=== PATIENT | male | born 1950 | race Caucasian/White ===

== ENCOUNTER → 2019-08-05 | Outpatient (CLI) | payer MEDICARE, OTHER ==
--- NOTE | 2019-08-05 17:24 | Diagnostic Imaging Report ---
EXAM: Abdomen, supine and erect at 2:23 PM INDICATION: Abdominal pain TECHNIQUE: Supine and erect views were obtained. COMPARISON: There are no prior studies available for comparison. FINDINGS: There is a small amount of gas in both the large and small bowel. This appearance is nonspecific. There is no evidence for a bowel obstruction. There is no mass or organomegaly appreciated. There are several calcifications low in the pelvis particularly on the left. I suspect these are phleboliths. There is no other pathological calcification evident. The osseous structures are intact. IMPRESSION: 1. The bowel gas pattern is nonspecific. There is no acute abnormality identified. Dictated by: Dictated on workstation # [id number]
--- NOTE | 2019-08-05 17:43 | Diagnostic Imaging Report ---
EXAM: PA and lateral chest at 2:22 PM INDICATION: Gastritis COMPARISON: There are no prior studies available for comparison. The heart size is within normal limits. The lungs are clear. There is no sign of failure, pneumonia or of pleural effusion. There do appear to be a few small calcified granulomas about the left hilum and in the left lung base. The mediastinum is not widened. The lateral view does show a severe 60-70% compression deformity of one of the lower most thoracic vertebra, probably T10. This injury may well be long-standing in nature. If previous exams are available, they would be helpful for comparison. If there are no prior studies and there is clinical concern regarding an acute injury of the lower thoracic spine, MRI would be recommended for further evaluation. IMPRESSION: 1. There is no acute cardiopulmonary abnormality noted. 2. The compression deformity of T10 is most likely long-standing in nature. Additional considerations and recommendations, as above. Dictated by: Dictated on workstation # [id number]
== END ==
LOC: RAD FS 14:08
PROVIDERS: ATTEND Emergency Medicine
DX: K29.70 Gastritis, unspecified, without bleeding (principal); M43.9 Deforming dorsopathy, unspecified
CPT/HCPCS: 71046; 74019

== ENCOUNTER 2019-11-21 15:57 | Emergency (ER) | payer MEDICARE, OTHER ==
[~2019-11-21] VITALS: Ht 180.3 cm; Wt 100.0 kg
--- NOTE | 2019-11-21 16:06 | ED General ---
General Stated Complaint: SEIZURE Source of Information: Patient Exam Limitations: No Limitations History of Present Illness Date Seen by Provider: Nov 21, 2019 Time Seen by Provider: 16:04 Initial Comments 69-year-old male brought in by EMS. reports that she went to the grocery store and semi-also watch him. When they walked in without he was shaking a little bit and then yawned. This was very brief. There was no postictal phase, there was no loss of bowel or bladder. Patient has severe dementia and cannot provide any history. Patient has a history of UTI and was in the hospital from October 25 the for treatment. Patient otherwise has no acute complaints Allergies and Home Medications Allergies Coded Allergies: No Known Drug Allergies (Unverified , 11/21/19) Patient Home Medication List Home Medication List Reviewed: Yes Review of Systems Review of Systems Constitutional: no symptoms reported EENTM: no symptoms reported Respiratory: no symptoms reported Cardiovascular: no symptoms reported Genitourinary: no symptoms reported Musculoskeletal: no symptoms reported Skin: no symptoms reported Psychiatric/Neurological: See HPI Hematologic/Lymphatic: No Symptoms Reported Past [id number]-Pfphvy-Repmdm Hx Past Med/Social Hx: Reviewed Nursing Past Med/Soc Hx Physical Exam Vital Signs Vital Signs - First Documented 11/21/19 15:57 Pulse 62 Resp 16 B/P (MAP) 109/73 (85) Pulse Ox 94 O2 Delivery Room Air Capillary Refill : Height, Weight, BMI Height: '" Weight: lbs. oz. 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, Other (pt with severe dementia, unable to access mental status ) Progress/Results/Core Measures Suspected Sepsis SIRS Temperature: Pulse: Respiratory Rate: Laboratory Tests 11/21/19 16:00: White Blood Count 9.1 Blood Pressure / Mean: Laboratory Tests 11/21/19 16:00: Creatinine 1.17, Platelet Count 298, Total Bilirubin 0.6 Results/Orders Lab Results Laboratory Tests Test 11/21/19 16:00 11/21/19 16:20 11/21/19 16:40 Range/Units White Blood Count 9.1 4.3-11.0 10^3/uL Red Blood Count 4.99 4.35-5.85 10^6/uL Hemoglobin 14.7 13.3-17.7 G/DL Hematocrit 44 40-54 % Mean Corpuscular Volume 87 80-99 FL Mean Corpuscular Hemoglobin 29 25-34 PG Mean Corpuscular Hemoglobin Concent 34 32-36 G/DL Red Cell Distribution Width 13.2 10.0-14.5 % Platelet Count 298 130-400 10^3/uL Mean Platelet Volume 10.0 7.4-10.4 FL Immature Granulocyte % (Auto) 0 % Neutrophils (%) (Auto) 64 42-75 % Lymphocytes (%) (Auto) 25 12-44 % Monocytes (%) (Auto) 8 0-12 % Eosinophils (%) (Auto) 2 0-10 % Basophils (%) (Auto) 1 0-10 % Neutrophils # (Auto) 5.8 1.8-7.8 X 10^3 Lymphocytes # (Auto) 2.3 1.0-4.0 X 10^3 Monocytes # (Auto) 0.8 0.0-1.0 X 10^3 Eosinophils # (Auto) 0.2 0.0-0.3 10^3/uL Basophils # (Auto) 0.1 0.0-0.1 10^3/uL Immature Granulocyte # (Auto) 0.0 0.0-0.1 10^3/uL Sodium Level 139 135-145 MMOL/L Potassium Level 3.9 3.6-5.0 MMOL/L Chloride Level 105 98-107 MMOL/L Carbon Dioxide Level 21 21-32 MMOL/L Anion Gap 13 5-14 MMOL/L Blood Urea Nitrogen 14 7-18 MG/DL Creatinine 1.17 0.60-1.30 MG/DL Estimat Glomerular Filtration Rate > 60 BUN/Creatinine Ratio 12 Glucose Level 125 H 70-105 MG/DL Calcium Level 9.1 8.5-10.1 MG/DL Corrected Calcium 8.7 8.5-10.1 MG/DL Total Bilirubin 0.6 0.1-1.0 MG/DL Aspartate Amino Transf (AST/SGOT) 19 5-34 U/L Alanine Aminotransferase (ALT/SGPT) 15 0-55 U/L Alkaline Phosphatase 100 40-136 U/L Troponin I < 0.30 <0.30 NG/ML Total Protein 7.0 6.4-8.2 GM/DL Albumin 4.5 3.2-4.5 GM/DL Glucometer 109 70-110 MG/DL Urine Color RED H Urine Clarity CLOUDY H Urine pH 6.0 5-9 Urine Specific [place] 1.025 H 1.016-1.022 Urine Protein 1+ H NEGATIVE Urine Glucose (UA) NEGATIVE NEGATIVE Urine Ketones NEGATIVE NEGATIVE Urine Nitrite NEGATIVE NEGATIVE Urine Bilirubin NEGATIVE NEGATIVE Urine Urobilinogen 0.2 < = 1.0 MG/DL Urine Leukocyte Esterase 2+ H NEGATIVE Urine RBC (Auto) 3+ H NEGATIVE Urine RBC >100 H /HPF Urine WBC >100 H /HPF Urine Squamous Epithelial Cells RARE /HPF Urine Crystals NONE /LPF Urine Bacteria LARGE H /HPF Urine Casts NONE /LPF Urine Mucus NEGATIVE /LPF Urine Culture Indicated YES My Orders Orders - BELLO,KRISTIE L DO Ct Head Wo (11/21/19 16:06) Cbc With Automated Diff (11/21/19 16:06) Comprehensive Metabolic Panel (11/21/19 16:06) Ua Culture If Indicated (11/21/19 16:06) Chest 1 View Ap/Pa Only (11/21/19 16:06) Troponin I Fs (11/21/19 16:06) Accucheck Stat ONCE (11/21/19 16:06) Ed Iv/Invasive Line Start (11/21/19 16:06) Ekg Tracing (11/21/19 16:06) Monitor-Rhythm Ecg Trace Only (11/21/19 16:06) Urine Culture (11/21/19 16:40) Ceftriaxone 1 Gram Ivp (11/21/19 17:23) Vital Signs/I&O 11/21/19 15:57 Pulse 62 Resp 16 B/P (MAP) 109/73 (85) Pulse Ox 94 O2 Delivery Room Air Capillary Refill : Progress Note : Time: 17:26 Progress Note Patient was stable throughout his stay in the ER. Patient with no seizure-like activities with normal presentation. Patient does have an urinary tract infection. I will treat him with a Rocephin IV here in the ER then discharge him on Keflex. Departure Impression Primary Impression: UTI (urinary tract infection) Qualified Codes: N30.01 - Acute cystitis with hematuria Disposition: HOME, SELF-CARE Condition: Stable Departure-Patient Inst. Referrals: RENAE MORRIS DO (PCP/Family) Primary Care Physician Patient Instructions: Urinary Tract Infections in Adults Scripts Cephalexin (Keflex) 500 Mg Capsule 500 MG PO TID for 10 Days, #30 CAP Prov: KRISTIE BELLO DO 11/21/19 KRISTIE BELLO DO Nov 21, 2019 16:06
--- NOTE | 2019-11-21 16:15 | NUR ---
Spoke to pt's via phone. reports going to the store and pt was left at home with a friend. Friend called and stated pt yawned and then began trembling and shaking. reports coming into the home right after the episode and pt was white and clammy. then called EMS. reports pt was admitted to [facility] in October for UTI.
--- NOTE | 2019-11-21 16:18 | NUR ---
Obtained past medical history from via phone.
[2019-11-21 16:22] LABS: HEMATOCRIT 44 % (40-54); HEMOGLOBIN 14.7 G/DL (13.3-17.7); MEAN CORPUSCULAR HEMOGLOBIN 29 PG (25-34); MEAN CORPUSCULAR HGB CONC 34 G/DL (32-36); MEAN CORPUSCULAR VOLUME 87 FL (80-99); WHITE BLOOD COUNT 9.1 10^3/uL (4.3-11.0)
[2019-11-21 16:23] LABS: BASOPHILS # (AUTO) 0.1 10^3/uL (0.0-0.1); BASOPHILS % (AUTO) 1 % (0-10); EOSINOPHILS # (AUTO) 0.2 10^3/uL (0.0-0.3); EOSINOPHILS % (AUTO) 2 % (0-10); LYMPHOCYTES # (AUTO) 2.3 X 10^3 (1.0-4.0); LYMPHOCYTES % (AUTO) 25 % (12-44); MONOCYTES # (AUTO) 0.8 X 10^3 (0.0-1.0); MONOCYTES % (AUTO) 8 % (0-12); NEUTROPHILS # (AUTO) 5.8 X 10^3 (1.8-7.8); NEUTROPHILS % (AUTO) 64 % (42-75); PLATELET COUNT 298 10^3/uL (130-400)
[2019-11-21 16:58] LABS: ALANINE AMINOTRANSFERASE 15 U/L (0-55); ALBUMIN 4.5 GM/DL (3.2-4.5); ALKALINE PHOSPHATASE 100 U/L (40-136); BILIRUBIN,TOTAL 0.6 MG/DL (0.1-1.0); BUN/CREATININE RATIO 12; CALCIUM 9.1 MG/DL (8.5-10.1); CARBON DIOXIDE 21 MMOL/L (21-32); CHLORIDE 105 MMOL/L (98-107); CREATININE SERUM 1.17 MG/DL (0.60-1.30); GFR ESTIMATED > 60; GLUCOSE 125 MG/DL (70-105); POTASSIUM 3.9 MMOL/L (3.6-5.0); SODIUM 139 MMOL/L (135-145)
[2019-11-21 17:02] LABS: CLARITY,URINE CLOUDY; COLOR,URINE RED
[2019-11-21 17:03] LABS: BACTERIA,URINE LARGE /HPF; BILIRUBIN,URINE NEGATIVE (NEGATIVE); GLUCOSE, URINE (UA) NEGATIVE (NEGATIVE); KETONES,URINE NEGATIVE (NEGATIVE); LEUKOCYTE ESTERASE ,URINE 2+ (NEGATIVE); NITRITE,URINE NEGATIVE (NEGATIVE); PROTEIN,URINE 1+ (NEGATIVE); RBC,URINE >100 /HPF; SQUAMOUS EPITHELIAL CELL,UR RARE /HPF; WBC,URINE >100 /HPF
--- NOTE | 2019-11-21 17:17 | Diagnostic Imaging Report ---
PROCEDURE: CT head without contrast. TECHNIQUE: Multiple contiguous axial images were obtained through the brain without the use of intravenous contrast. Auto Exposure Controls were utilized during the CT exam to meet ALARA standards for radiation dose reduction. INDICATION: Confusion, dementia. FINDINGS: Noncontrast CT scanning of the head demonstrates diffuse atrophy with small vessel disease. No focal areas of infarction are present. There is no mass effect, midline shift, or hemorrhage. The osseous structures appear normal. Mastoid air cells and visualized portions of the paranasal sinuses are clear. IMPRESSION: There is diffuse atrophy with small vessel disease. No focal findings are present. Dictated by: Dictated on workstation # [id number]
--- NOTE | 2019-11-21 17:18 | Diagnostic Imaging Report ---
INDICATION: Seizure activity. COMPARISON: None. FINDINGS: Single view of the chest demonstrates stable cardiac enlargement. The lungs are clear. There is no pneumothorax. Osseous structures are age appropriate. IMPRESSION: No acute cardiopulmonary findings. Dictated by: Dictated on workstation # [id number]
[2019-11-21] MEDS ORDERED: cefTRIAXone FOR IV USE 1,000 MG in WATER (STERILE) FOR INJECTION 10 ML IV STA (17:23)
[2019-11-21] MEDS ORDERED: CEPH-507 PO (17:29)
--- NOTE | 2019-11-21 17:30 | NUR ---
Spoke to pt's regarding plan of care.
[2019-11-21 17:55] VITALS: BP 118/59
== END 2019-11-21 17:54 | disposition home or self-care (01) ==
LOC: EDUNIT# 15:57 → ER FS 15:58
DX: N39.0 Urinary tract infection, site not specified (principal)
CPT/HCPCS: 36415; 51701; 70450; 71045; 80053; 81000; 82962; 84484; 85025; 87077; 87088; 93005; 93041